=== PATIENT | male | born 1950 | race Caucasian/White ===

== ENCOUNTER 2017-08-12 05:32 | Day surgery (SDC) | payer MEDICARE, BC ==
[2017-08-11 11:01] VITALS: BMI 31.5
--- NOTE | 2017-08-12 05:56 | HP ---
DATE OF ADMISSION: 08/12/2017 HISTORY OF PRESENT ILLNESS: This is a 67-year-old male with abdominal pain. The patient had abdominal pain over the last several years. The pain was more over left lower abdomen. The pain is localized, occurs at random and lasts for several hours. . He has a history of diarrhea at times and also CONSTIPATION_ at times. There is no active bleeding. The patient comes in for colonoscopy because of abdominal pain and also an EGD because of chronic acid reflux. ALLERGIES: 1. LYRICA. 2. NEURONTIN. MEDICAL ILLNESSES: 1. Chronic dyspepsia, chronic acid reflux. 2. Hyperlipidemia. 3. Hypertension. PHYSICAL EXAMINATION: GENERAL: Appears comfortable. VITAL SIGNS: Pulse is 70, blood pressure 130/70. CARDIOVASCULAR: First and second heart sounds normal. LUNGS: Clear to auscultation. ABDOMEN: Soft to palpate. Abdomen is tender over the left side of the abdomen. There is no rebound or guarding. ADMITTING DIAGNOSES: 1. Chronic abdominal pain. 2. Chronic dyspepsia and acid reflux. PLAN: EGD and colonoscopy. [facility]
--- NOTE | 2017-08-12 09:52 | OP ---
DATE OF PROCEDURE: 08/12/2017 SURGEON: Dexter Yousif M.D. OPERATIVE PROCEDURE: Colonoscopy with polypectomy, biopsy. PREOPERATIVE DIAGNOSIS: Abdominal pain. POSTOPERATIVE DIAGNOSES: 1. Sessile cecal polyp. 2. Sessile hepatic flexure polyp. 3. Hemorrhoids. PROCEDURE NOTE: The patient was placed on his left lateral position and was given sedation by Anesth esia Department. A rectal exam was done before the scope was advanced into the rectum. No lesions w ere felt on rectal exam. A Pentax video colonoscope was introduced into the rectum and advanced all the way to the cecum. The prep was good. The mucosa appeared normal. The appendiceal orifice and i leocecal valve, no pathology seen. Over the cecal area, the patient was found to have a sessile poly p. The polyp was removed with biopsy. The ascending colon, no pathology seen. The hepatic flexure showed a sessile polyp measuring approximately 1 cm. It was removed with snare cautery with good hem ostasis. The transverse colon, splenic flexure, descending colon, and sigmoid colon, no pathology se en. Rectum showed hemorrhoids.
--- NOTE | 2017-08-12 10:00 | OP ---
DATE OF PROCEDURE: 08/12/2017 OPERATIVE PROCEDURES: 1. Esophagogastroduodenoscopy with biopsy. 2. Esophageal dilation with 50-[place]serratian Mayo dilator. PREOPERATIVE DIAGNOSES: Chronic dyspepsia and chronic acid reflux. POSTOPERATIVE DIAGNOSES: 1. Irregular Z-line with edematous and erythematous mucosa, lower esophagus. 2. Mild narrowing at the gastroesophageal junction. 3. Antral gastritis with erosion of small ulcer in the antrum. 4. Ulcer in the duodenal bulb. PROCEDURE IN DETAIL: The patient was placed on his left lateral position and was given sedation by A nesthesia Department. A Pentax video gastroscope under direct vision was passed down the oropharynx, past the gastroesophageal junction, into the stomach and subsequently into the descending duodenum. The esophageal mucosa appeared normal over the upper 2/3. Over the distal esophagus and gastroesoph ageal junction, there is irregular Z-line with edematous and erythematous mucosa. Also, the lumen ap peared slightly narrowed at the gastroesophageal junction. Retroflexion failed to show any lesions i n the fundus or cardia. The gastric body, no pathology seen. The gastric antrum showed gastritis wi th erosion and small ulcer. The duodenal bulb shows ulceration. The descending duodenum, no patholo gy seen. Biopsies were obtained from the gastric antrum and gastric body. Also, biopsies were obtai anastacia from the distal esophagus. The scope removed. A 50-[place]err[place]ian Mayo dilator was passed down with no resistance. DISCHARGE PLANNING: This is a 67-year-old male who came in for an EGD and colonoscopy ainsley use of abdominal pain, chronic dyspepsia, chronic acid reflux. He underwent EGD with biopsy and dila tion. He underwent a colonoscopy with polypectomy. DISCHARGE RECOMMENDATIONS: 1. The patient advised to call me if he develops any abdominal pain, hematochezia or fever. 2. Start the patient on omeprazole 40 once a day. 3. Await the gastric biopsy and make further recommendations.
[2017-08-12] MEDS ORDERED: Propofol 200 MG/20 ML VIAL ONE (15:52)
[2017-08-12] MEDS ORDERED: Lidocaine 1% PF 5 ML VIAL ONE (15:52)
== END 2017-08-12 09:23 | disposition home or self-care (01) ==
LOC: SDC 05:32
PROVIDERS: ATTEND Internal Medicine Gastroenterology
PROC: 0DBL8ZX Excision of Transverse Colon, Via Natural or Artificial Opening Endoscopic, Diagnostic (ICD-10-PCS; principal; 2017-08-12)
PROC: 0DBH8ZX Excision of Cecum, Via Natural or Artificial Opening Endoscopic, Diagnostic (ICD-10-PCS; 2017-08-12)
PROC: 0DB38ZX Excision of Lower Esophagus, Via Natural or Artificial Opening Endoscopic, Diagnostic (ICD-10-PCS; 2017-08-12)
PROC: 0DB78ZX Excision of Stomach, Pylorus, Via Natural or Artificial Opening Endoscopic, Diagnostic (ICD-10-PCS; 2017-08-12)
PROC: 0DB68ZX Excision of Stomach, Via Natural or Artificial Opening Endoscopic, Diagnostic (ICD-10-PCS; 2017-08-12)
PROC: 0D748ZZ Dilation of Esophagogastric Junction, Via Natural or Artificial Opening Endoscopic (ICD-10-PCS; 2017-08-12)
DX: D12.0 Benign neoplasm of cecum (principal); K63.5 Polyp of colon; K64.9 Unspecified hemorrhoids; K29.50 Unspecified chronic gastritis without bleeding; K25.7 Chronic gastric ulcer without hemorrhage or perforation; K22.2 Esophageal obstruction; K21.0 Gastro-esophageal reflux disease with esophagitis; E78.5 Hyperlipidemia, unspecified; I10 Essential (primary) hypertension; I25.10 Atherosclerotic heart disease of native coronary artery without angina pectoris; Z88.8 Allergy status to other drugs, medicaments and biological substances; Z95.1 Presence of aortocoronary bypass graft; Z98.890 Other specified postprocedural states; Z79.899 Other long term (current) drug therapy; Z79.84 Long term (current) use of oral hypoglycemic drugs; Z79.82 Long term (current) use of aspirin
CPT/HCPCS: 88305; 88312; 88313; J2001; J2704

== ENCOUNTER 2017-09-30 07:30 | Outpatient (CLI) | payer MEDICARE, BC ==
--- NOTE | 2017-09-30 09:42 | CT ---
CT ABDOMEN WITH CONTRAST: HISTORY: R10.9, abdominal pain. Left-side abdominal pain for 30 years. History of prostate cancer. History of triple bypass and hernia. COMPARISON: Ultrasound of the abdomen 2014. FINDINGS: Lung bases are clear. No pericardial effusion. Mild atelectatic changes. There is diffuse hepatic steatosis. Gallbladder is unremarkable. The spleen is normal as well as th e pancreas and the adrenal glands. There is contrast within the renal collecting systems and proxima l ureters. The skeleton is unremarkable. No suspicious osteoblastic lesions. Mild degenerative dis k space height loss at L4-5 and L5-S1. The appendix is partially visualized. IMPRESSION: Unremarkable exam. No findings to explain the patient's abdominal pain. POS: [facility]
== END 2017-09-30 07:31 | disposition home or self-care (01) ==
LOC: CT 07:30
PROVIDERS: ATTEND Internal Medicine Gastroenterology
DX: R10.9 Unspecified abdominal pain (principal)
CPT/HCPCS: 74160

== ENCOUNTER 2019-03-16 05:46 | Inpatient (IN) | payer MEDICARE, BC ==
[2019-03-15 10:15] VITALS: BMI 30.2
[2019-03-16] MEDS ORDERED: Sodium Chloride 0.9% 10 ML ONE (06:27)
[2019-03-16 06:39] LABS: #Eosinphils 0.1 thou/uL (0.0-0.7); #Lymphocytes 1.9 thou/uL (1.20-3.40); #Monocytes 0.8 thou/uL (0.11-0.59); #Neutrophils 4.9 thou/uL (1.40-6.50); %Basophils 0.1 % (0.0-1.0); %Eosinophils 0.8 % (0.0-10.0); %Monocytes 10.3 % (0.0-10.0); %Neutrophils 63.8 % (42.0-75.0); Hemoglobin 15.8 g/dL (14.0-18.0); Mean Corpuscular HGB CONC 33.1 g/dL (32.0-36.0); Mean Corpuscular Hemoglobin 32.1 pg (27.0-31.0); Mean Corpuscular Volume 97.3 fL (78.0-98.0); Mean Platelet Volume 7.7 fL (7.4-10.4); Platelet Count 168 thou/uL (130-400); RBC Distribution Width 11.6 % (11.5-14.5); Red Blood Cell (RBC) Count 4.93 mill/uL (4.70-6.10); White Blood Cell (WBC) Count 7.6 thou/uL (4.8-10.8)
[2019-03-16] MEDS ORDERED: Fentanyl 100 MCG/2 ML VIAL ONE ×2 (06:43→09:12)
[2019-03-16 07:00] LABS: Anion Gap 14 mmol/L (10-20); BUN (Urea Nitrogen) 10 mg/dL (8.4-25.7); Calc. Creatinine Clearance 87 mL/min (70-130); Calcium 10.1 mg/dL (7.8-10.44); Carbon Dioxide 23 mmol/L (23-31); Chloride 102 mmol/L (98-107); Estimated GFR-MDRD 63; Glucose 159 mg/dL (80-115); Potassium 4.1 mmol/L (3.5-5.1); Sodium 135 mmol/L (136-145)
[2019-03-16] MEDS ORDERED: Ondansetron HCl/PF 4 MG/2 ML Vial IVP PRN (08:44)
[2019-03-16] MEDS ORDERED: Promethazine HCl 25 MG/ML VIAL SLOW IVP PRN (08:44)
[2019-03-16] MEDS ORDERED: Promethazine HCl 25 MG/ML VIAL IM PRN ×2 (08:44→12:35)
--- NOTE | 2019-03-16 12:19 | OP ---
DATE OF PROCEDURE: 03/16/2019 AMBULANCE ATTENDANT: Cristofer Reyes PA-C PROCEDURES PERFORMED: Anterior cervical diskectomy C5-C6 and C6-C7, interbody arthrodesis, intervertebral biomechanical device, local morselized autograft, demineralized bone matrix, anterior titanium instrumentation C5 to C7. DESCRIPTION OF PROCEDURE: The patient was brought to the operating room and intubated. He was positioned supine with the head in modest extension on a gel-filled donut. An incision was made in the right precervical area and dissected medial to the sternocleidomastoid muscle and identified the anterior cervical spinal, and the level was confirmed by x-ray. We debrided the anterior osteophytes, placed distraction across the disk spaces, and completely removed the intervertebral disks at C5-C6 and C6-C7. Next, an anterior plate was brought into the field and secured to C5, C6, and C7 using two 14-mm screws at each level. The wound was then extensively irrigated and MAC hemostasis was secured. The wound was closed in anatomic layers over drain. Job ID: [id number]
[2019-03-16] MEDS ORDERED: Promethazine HCl 12.5 MG SUPP PR PRN (12:35)
[2019-03-16] MEDS ORDERED: diphenhydrAMINE 50 MG/ML VIAL IVP PRN (12:35)
[2019-03-16] MEDS ORDERED: Milk Of Magnesia 30 ML UDCUP PO PRN (12:35)
[2019-03-16] MEDS ORDERED: Mag-Al 1200 mg/1200 mg/30 ML UDCUP PO PRN (12:35)
[2019-03-16] MEDS ORDERED: diphenhydrAMINE 25 MG CAP PO PRN (12:35)
[2019-03-16] MEDS ORDERED: Ondansetron PF 4 MG/2 ML Vial IVP PRN (12:35)
[2019-03-16] MEDS ORDERED: traMADol HCl 50 MG TAB PO PRN ×2 (12:35)
[2019-03-16] MEDS ORDERED: Morphine 4 MG/ML VIAL SLOW IVP PRN ×2 (12:35→12:45)
[2019-03-16] MEDS ORDERED: Promethazine 25 MG TAB PO PRN (12:35)
[2019-03-16] MEDS ORDERED: HYDROcodone/Acetaminophen 10/325 mg Tablet PO PRN (12:35)
[2019-03-16] MEDS: CEFAZOLIN 2 GM in Premix Bag 1 BAG IVPB SCH ×2 (13:14→21:49)
[2019-03-16] MEDS: Sodium Chloride 0.9% 1,000 ML IV SCH (13:15)
[2019-03-16] MEDS: HYDROcodone/Acetaminophen 10/325 mg Tablet PO PRN (13:41)
[2019-03-16] MEDS ORDERED: Furosemide 20 MG TAB PO PRN (14:50)
[2019-03-16] MEDS ORDERED: Dextrose 50% Abboject 50 ML SYRINGE SLOW IVP PRN (14:51)
[2019-03-16] MEDS ORDERED: HumaLOG 300 UNITS/3 ML VIAL SC PRN ×2 (14:51)
[2019-03-16] MEDS ORDERED: Dextrose 5% in Water 1,000 ML IV PRN (14:51)
[2019-03-16] MEDS: tiZANidine HCl 4 MG TAB PO PRN ×2 (15:27→21:52)
[2019-03-16] MEDS: hydrALAZINE 25 MG TAB PO SCH ×2 (15:27→21:46)
--- NOTE | 2019-03-16 16:18 | PDOC.PN ---
- Subjective Encounter Start Date: 03/16/19 Encounter Start Time: 16:16 Subjective: feels well excpet for some mild muscle pain in neck & diarrhea X2 weeks -: s/p Ant Cervical diskectomy -: PCP is - Objective MAR Reviewed: Yes Vital Signs & Weight: Vital Signs (12 hours) Temp Pulse Resp BP BP Pulse Ox 03/16/19 15:27 67 170/83 H 03/16/19 12:15 97.9 F 73 18 152/82 H 95 Weight Weight 217 lb Result Diagrams: 03/16/19 06:29 03/16/19 06:29 Phys Exam - Physical Examination Constitutional: NAD HEENT: PERRLA, moist MMs, sclera anicteric, oral pharynx no lesions Neck: no nodes, no JVD, supple, full ROM ant neck bandaged w drain present Respiratory: no wheezing, no rales, no rhonchi, clear to auscultation bilateral Cardiovascular: RRR, no significant murmur Gastrointestinal: soft, non-tender, no distention, positive bowel sounds Musculoskeletal: no edema, pulses present Neurological: non-focal, normal sensation, moves all 4 limbs Psychiatric: normal affect, A&O x 3 Skin: no rash Dx/Plan (1) Diarrhea Code(s): R19.7 - DIARRHEA, UNSPECIFIED Status: Acute Comment: will check stool studies. no blood in stools (2) DM2 (diabetes mellitus, type 2) Status: Chronic Qualifiers: Diabetes mellitus senior living insulin use: without marine oil terminal superintendent use Comment: Hold metformin. cont repaglinide. Add ISS and accuchecks. (3) HTN (hypertension) Code(s): I10 - ESSENTIAL (PRIMARY) HYPERTENSION Status: Chronic Comment: restart Bystolic,hydralazine.add prn meds (4) HLD (hyperlipidemia) Code(s): E78.5 - HYPERLIPIDEMIA, UNSPECIFIED Status: Chronic Comment: restart Crestor and zetia (5) S/P cervical discectomy Code(s): Z98.890 - OTHER SPECIFIED POSTPROCEDURAL STATES Status: Acute Comment: pain meds per Primary team - Plan plan discussed w/ family, DVT proph w/SCDs am labs -: IM team will follow -: HD stable * . Review of Systems - Review of Systems Constitutional: negative: fever, chills, sweats, weakness, malaise, other Cardiovascular: negative: chest pain, palpitations, orthopnea, paroxysmal nocturnal dyspnea, edema, light headedness, other Gastrointestinal: negative: Nausea, Vomiting, Abdominal Pain, Diarrhea, Constipation, Melena, Hematochezia, Other Genitourinary: negative: Dysuria, Frequency, Incontinence, Hematuria, Retention , Other Musculoskeletal: Neck Pain Neurological: negative: Weakness, Numbness, Incoordination, Change in Speech, Confusion, Seizures, Other - Medications/Allergies Allergies/Adverse Reactions: Allergies Allergy/AdvReac Type Severity Reaction Status Date / Time gabapentin [From Neurontin] Allergy Verified 03/15/19 10:15 olmesartan [From Benicar] Allergy "MAKES ME Verified 03/15/19 10:27 DIZZY" pregabalin [From Lyrica] Allergy Verified 03/15/19 10:15 Medications: Current Medications Hydrocodone Bitart/Acetaminophen ([place] 10/325) 1 tab PO Q4H PRN PRN Reason: PAIN (1-3) Hydrocodone Bitart/Acetaminophen ([place] 10/325) 2 tab PO Q4H PRN PRN Reason: PAIN (4-6) Last Admin: 03/16/19 13:41 Dose: 2 tab Al Hydroxide/Mg Hydroxide (Maalox) 30 ml PO Q4H PRN PRN Reason: Heartburn or Indigestion Dextrose/Water (Dextrose 50%) 25 gm SLOW IVP PRN PRN PRN Reason: Hypoglycemia Diphenhydramine HCl (Benadryl) 25 mg PO Q6H PRN PRN Reason: Itching Diphenhydramine HCl (Benadryl) 25 mg IVP Q6H PRN PRN Reason: Itching Ezetimibe (Zetia) 10 mg PO QAM [facility] Furosemide (Lasix) 10 mg PO DAILY PRN PRN Reason: SWELLING Glucagon (Glucagon) 1 mg IM PRN PRN PRN Reason: Hypoglycemia Hydralazine HCl (Apresoline) 50 mg PO TID [facility] Last Admin: 03/16/19 15:27 Dose: 50 mg Sodium Chloride (Normal Saline 0.9%) 1,000 mls @ 75 mls/hr IV .[id number] [facility] Last Admin: 03/16/19 13:15 Dose: 1,000 mls Cefazolin Sodium/Dextrose 2 gm (/ Device) 50 mls @ 100 mls/hr IVPB Q8HR [facility] Last Admin: 03/16/19 13:14 Dose: 50 mls Dextrose/Water (D5w) 1,000 mls @ 0 mls/hr IV .Q0M PRN PRN Reason: Hypoglycemia Insulin Human Lispro (Humalog) 0 units SC .MODERATE SLIDING SC PRN PRN Reason: Moderate Correctional Scale Insulin Human Lispro (Humalog) 0 units SC .BEDTIME SLIDING SC PRN PRN Reason: Bedtime Correctional Scale Magnesium Chloride (Slow-Mag) 71.5 mg PO HS [facility] Magnesium Hydroxide (Milk Of Magnesium) 30 ml PO Q12H PRN PRN Reason: Constipation Morphine Sulfate (Morphine) 4 mg SLOW IVP Q1H PRN PRN Reason: SEVERE BREAKTHROUGH PAIN Morphine Sulfate (Morphine) 2 mg SLOW IVP Q1H PRN PRN Reason: Moderate Breakthrough Pain Nebivolol (Bystolic) 20 mg PO QAM [facility] Ondansetron HCl (Zofran) 4 mg IVP Q24H PRN PRN Reason: Nausea/Vomiting Pantoprazole Sodium (Protonix) 40 mg PO QAM [facility] Pneumococcal 13-Valent Conj Vacc (Prevnar) 0.5 ml IM .ONCE ONE Stop: 03/17/19 09:01 Promethazine HCl (Phenergan) 12.5 mg IM Q4H PRN PRN Reason: Nausea/Vomiting Promethazine HCl (Phenergan) 12.5 mg PO Q4H PRN PRN Reason: Nausea/Vomiting Promethazine HCl (Phenergan Suppository) 12.5 mg [place] Q4H PRN PRN Reason: Nausea/Vomiting Repaglinide (Prandin) 1 mg PO BID-AC [facility] Rosuvastatin Calcium (Crestor) 10 mg PO HS [facility] Sodium Chloride (Flush - Normal Saline) 10 ml IVF Q12HR [facility] Sodium Chloride (Flush - Normal Saline) 10 ml IVF PRN PRN PRN Reason: Saline Flush Tizanidine HCl (Zanaflex) 4 mg PO Q6H PRN PRN Reason: MUSCLE SPASM Last Admin: 03/16/19 15:27 Dose: 4 mg Tramadol HCl (Ultram) 50 mg PO Q6H PRN PRN Reason: PAIN (1-3) Tramadol HCl (Ultram) 100 mg PO Q6H PRN PRN Reason: PAIN (4-6)
[2019-03-16] MEDS ORDERED: Ondansetron PF 4 MG/2 ML Vial ONE (16:43)
[2019-03-16] MEDS ORDERED: Rocuronium Bromide 10 MG/ML (10ML VIAL) ONE (16:43)
[2019-03-16] MEDS ORDERED: Glycopyrrolate 0.2 MG/ML 5 ML SYRINGE ONE (16:43)
[2019-03-16] MEDS ORDERED: Lidocaine 1% PF 5 ML VIAL ONE (16:43)
[2019-03-16] MEDS ORDERED: PHENYLEPHRINE-NS 100 MCG/ML 10 ML SYRINGE ONE (16:43)
[2019-03-16] MEDS ORDERED: PROPOFOL 200 MG/20 ML VIAL ONE (16:43)
[2019-03-16] MEDS ORDERED: ePHEDrine 50 MG/ML VIAL ONE (16:43)
[2019-03-16] MEDS ORDERED: Rosuvastatin 10 MG TAB PO SCH (21:00)
[2019-03-16] MEDS ORDERED: Magnesium Chloride 64 MG TAB PO SCH (21:00)
[2019-03-17] MEDS: HYDROcodone/Acetaminophen 10/325 mg Tablet PO PRN (00:18)
[2019-03-17 05:26] VITALS: TEMP 98.3
[2019-03-17] MEDS: CEFAZOLIN 2 GM in Premix Bag 1 BAG IVPB SCH (05:48)
[2019-03-17] MEDS: Sodium Chloride 0.9% 1,000 ML IV SCH (05:49)
[2019-03-17 08:39] VITALS: BP 159/76
[2019-03-17] MEDS: tiZANidine HCl 4 MG TAB PO PRN (08:42)
[2019-03-17] MEDS: hydrALAZINE 25 MG TAB PO SCH (08:43)
[2019-03-17] MEDS ORDERED: Ezetimibe 10 MG TAB PO SCH (09:00)
[2019-03-17] MEDS ORDERED: Nebivolol HCl 5 MG TAB PO SCH (09:00)
[2019-03-17] MEDS ORDERED: Prevnar 13-Val Conj/PF 0.5 ML SYRINGE IM ONE (09:00)
--- NOTE | 2019-03-17 10:18 | DIS ---
DATE OF ADMISSION: 03/16/2019 DATE OF DISCHARGE: 03/17/2019 HOSPITAL COURSE: The patient is a 68-year-old male, status post C5 through C7 ACDF. Following the surgery, he was transitioned to the Med/Surg floor, where his pain was well controlled with p.o. medications, he was tolerating a regular diet, and he was voiding appropriately. The patient did have some mild dysphagia and some mild hoarseness, but again he was tolerating a p.o. diet without difficulty and not having any respiratory issues. He did have a GUICHO drain placed intraoperatively and this had 20 mL of output overnight. This was removed on postoperative day #1. Additionally, the patient had been experiencing some diarrhea over the week prior and during his hospital admission. A C diff study was sent, which was negative, and a lactoferrin stool study was sent, which was slightly elevated. The patient was evaluated by the hospitalist for this medical issue, and they felt that this likely represented a viral event and recommended followup with his PCP as outpatient. From neurosurgical standpoint, the patient was doing well and discharged on postoperative day #1. I have discussed precautions. Home care will follow up with the patient in 2 weeks. Job ID: [id number]
== END 2019-03-17 09:28 | disposition home or self-care (01) | DRG 473 ==
LOC: SDC 05:46 → SJJU 07:36
PROVIDERS: ADMIT Neurological Surgery; ATTEND Neurological Surgery
PROC: 0RG20A0 Fusion of 2 or more Cervical Vertebral Joints with Interbody Fusion Device, Anterior Approach, Anterior Column, Open Approach (ICD-10-PCS; principal; 2019-03-16)
PROC: 0RT30ZZ Resection of Cervical Vertebral Disc, Open Approach (ICD-10-PCS; 2019-03-16)
DX: M47.22 Other spondylosis with radiculopathy, cervical region (principal); R19.7 Diarrhea, unspecified; E11.9 Type 2 diabetes mellitus without complications; I10 Essential (primary) hypertension; E78.5 Hyperlipidemia, unspecified; R13.10 Dysphagia, unspecified; R49.0 Dysphonia; Z95.1 Presence of aortocoronary bypass graft
CPT/HCPCS: 36415; 36416; 76000; 80048; 83630; 85025; 87324; 87449; C1713; C1776; J0131; J0690; J2001; J2270; J2405; J2704; J3010; J3490

== ENCOUNTER 2019-03-30 10:22 | Outpatient (CLI) | payer MEDICARE, BC ==
--- NOTE | 2019-03-30 10:52 | RAD ---
EXAM: 3 views of the cervical spine HISTORY: Neck pain COMPARISON: None FINDINGS: AP, lateral, and open mouth odontoid views of the cervical spine shows the patient is statu s post fusion of C5-C7 with a plate and screws. The disc spacers are in good position within the intervening disc spaces. There is normal height of vertebral bodies and intervertebral discs without fracture. Grade 1 anterolisthesis of C4 on C5 is seen. No prevertebral soft tissue swelling is seen. IMPRESSION: Postsurgical changes of the cervical spine as above.
== END 2019-03-30 10:23 | disposition home or self-care (01) ==
LOC: TBSIIMAG 10:22
PROVIDERS: ATTEND Neurological Surgery
DX: M54.12 Radiculopathy, cervical region (principal); Z98.890 Other specified postprocedural states
CPT/HCPCS: 72040

== ENCOUNTER 2019-05-17 13:24 | Outpatient (CLI) | payer MEDICARE, BC ==
--- NOTE | 2019-05-17 13:58 | RAD ---
CERVICAL SPINE 3 VIEWS: Date: 05/17/19 HISTORY: Disc degeneration. Neck pain. COMPARISON: 03/30/19. FINDINGS: Postop changes at the C5, C6, and C7 levels again noted. Anterior plate and screws are unchanged in p osition. Interbody implants are unchanged. Posterior alignment is maintained and stable. No interval change. IMPRESSION: Stable findings. POS: OFF
== END 2019-05-17 13:25 | disposition home or self-care (01) ==
LOC: TBSIIMAG 13:24
PROVIDERS: ATTEND Neurological Surgery
DX: M50.30 Other cervical disc degeneration, unspecified cervical region (principal)
CPT/HCPCS: 72040

== ENCOUNTER 2020-11-02 14:01 | Emergency (ER) | payer MEDICARE, BC ==
[2020-11-02 14:32] LABS: #Basophils 0.1 thou/uL (0.0-0.2); #Eosinphils 0.2 thou/uL (0.0-0.7); #Lymphocytes 3.9 thou/uL (1.20-3.40); #Monocytes 0.9 thou/uL (0.11-0.59); #Neutrophils 5.8 thou/uL (1.40-6.50); %Basophils 1.3 % (0.0-1.0); %Eosinophils 1.6 % (0.0-10.0); %Lymphocytes 35.4 % (21.0-51.0); %Monocytes 8.1 % (0.0-10.0); %Neutrophils 53.6 % (42.0-75.0); Hemoglobin 15.6 g/dL (14.0-18.0); Mean Corpuscular HGB CONC 34.6 g/dL (32.0-36.0); Mean Corpuscular Hemoglobin 33.3 pg (27.0-31.0); Mean Corpuscular Volume 96.3 fL (78.0-98.0); Platelet Count 278 thou/uL (130-400); RBC Distribution Width 11.5 % (11.5-14.5); Red Blood Cell (RBC) Count 4.68 mill/uL (4.70-6.10); White Blood Cell (WBC) Count 10.9 thou/uL (4.8-10.8)
[2020-11-02 14:49] LABS: ALT (SGPT) 64 U/L (8-55); AST (SGOT) 42 U/L (5-34); Albumin 4.1 g/dL (3.4-4.8); Alkaline Phosphatase 57 U/L (40-110); Anion Gap 14 mmol/L (10-20); BUN (Urea Nitrogen) 12 mg/dL (8.4-25.7); Bilirubin, Total 0.7 mg/dL (0.2-1.2); Calc. Creatinine Clearance 0 mL/min (70-130); Calcium 9.9 mg/dL (7.8-10.44); Carbon Dioxide 27 mmol/L (23-31); Chloride 99 mmol/L (98-107); Globulin 3.1 g/dL (2.4-3.5); Glucose 81 mg/dL (80-115); Protein, Total 7.2 g/dL (5.8-8.1); Sodium 136 mmol/L (136-145)
--- NOTE | 2020-11-02 14:55 | RAD ---
CHEST 1 VIEW: HISTORY: Palpitations. COMPARISON: Radiograph 2006. FINDINGS: Multiple midline sternotomy wires. No confluent airspace consolidation, pneumothorax, or effusion. IMPRESSION: No acute intrathoracic abnormality. POS: [facility]
== END 2020-11-02 16:39 | disposition home or self-care (01) ==
LOC: ERS 14:01
DX: R00.2 Palpitations (principal); I10 Essential (primary) hypertension; E11.9 Type 2 diabetes mellitus without complications; Z87.891 Personal history of nicotine dependence
CPT/HCPCS: 36415; 71045; 80053; 83690; 84484; 85025; 93005

== ENCOUNTER 2020-12-06 09:35 | Outpatient (CLI) | payer MEDICARE, BC ==
[2020-12-06] MEDS ORDERED: Magnevist 469MG/ML 20 ML VIAL ONE (14:06)
== END 2020-12-06 09:36 | disposition home or self-care (01) ==
LOC: BICMRI 09:35
PROVIDERS: ATTEND Internal Medicine Gastroenterology
DX: K85.90 Acute pancreatitis without necrosis or infection, unspecified (principal); K59.00 Constipation, unspecified; R10.13 Epigastric pain; Z86.010 Personal history of colon polyps; M47.816 Spondylosis without myelopathy or radiculopathy, lumbar region
CPT/HCPCS: 74183; 82565; A9579

== ENCOUNTER 2022-11-05 10:13 | Outpatient (CLI) | payer MEDICARE | END 2022-11-05 10:14 | disposition home or self-care (01) | LOC: TBSIIMAG 10:13 | PROVIDERS: ATTEND Neurological Surgery | DX: M47.22 Other spondylosis with radiculopathy, cervical region (principal); Z98.1 Arthrodesis status | CPT/HCPCS: 72040; 72141 ==